=== PATIENT | female | born 1955 ===

== ENCOUNTER 2025-09-01 06:32 | Day surgery (SDC) | payer MEDICARE, OTHER, SELFPAY | END 2025-09-01 13:32 | disposition home or self-care (01) | LOC: GI 06:32 | PROVIDERS: ATTENDING PHYSICIAN Internal Medicine Gastroenterology | DX: K52.839 Microscopic colitis, unspecified (principal); K64.8 Other hemorrhoids; K44.9 Diaphragmatic hernia without obstruction or gangrene; K31.7 Polyp of stomach and duodenum; R12 Heartburn; Z86.0100 Personal history of colon polyps, unspecified; Z98.0 Intestinal bypass and anastomosis status | CPT/HCPCS: 45380; 43239; 88305 ==